=== PATIENT | female | born 1945 | race Caucasian/White ===

== ENCOUNTER 2017-03-19 01:54 | Emergency (ER) | payer MEDICARE ==
[2017-03-19] MEDS ORDERED: MORPHINE SULFATE 10 MG/ML INJ ONE (02:19)
[2017-03-19] MEDS ORDERED: HEPARIN SOD (PORCINE) 1,000 UNIT/ML 10 ML VIAL ONE (02:19)
[2017-03-19] MEDS: NITROGLYCERIN 0.4 MG/TAB 25 TAB/BOTTLE SL PRN ×2 (02:21→02:26)
[2017-03-19] MEDS ORDERED: ONDANSETRON HCL INJ/PF 4 MG/2 ML SDV ONE (02:25)
--- NOTE | 2017-03-19 02:27 | RADIOLOGY REPORT (SQ) ---
EXAM DESCRIPTION: CHEST SINGLE VIEW CLINICAL HISTORY: 72 years, Female, CHEST PAIN COMPARISON: 01/30/2015. LIMITATIONS: None. FINDINGS: Small opacity-effusion of the left costophrenic angle. Normal lung volume. Prominent cardiac silhouette. Chronic calcification at the medial left lower hemithorax. Atherosclerosis. Cervicothoracic hardware fusion. Stable. IMPRESSION: No acute cardiopulmonary findings. 2010 [employer] [facility] [email or web address]- All Rights Reserved
--- NOTE | 2017-03-19 02:30 | ER Document Report ---
ED Cardiac - General Stated Complaint: CHEST PAIN Time Seen by Provider: 03/19/17 02:00 Mode of Arrival: Medic Information source: Emergency Med Personnel TRAVEL OUTSIDE OF THE [place] IN LAST 30 DAYS: No - HPI Patient complains to provider of: Chest pain Notes: 72-year-old lady with prior medical history of atrial fibrillation as well as coronary artery disease who has a previous stent in her right coronary artery by [facility] presented today with acute episode of chest pain. According to EMS patient has been having chest pain since yesterday. Her pain has gotten worse today not associated with shortness of breath. Patient was seen immediately upon arrival. Prehospital EKG concerning for posterior LA with elevations in aVR as well as significant depressions in her septal leads. Patient is an active pain, diaphoretic, severity of her pain is 10 out of 10. Code STEMI was activated. - Related Data Allergies/Adverse Reactions: atorvastatin calcium [From Lipitor] Allergy (Verified 08/20/14 06:40) codeine [Codeine] Allergy (Verified 08/20/14 06:40) Iodinated Contrast- Oral and IV Dye [IV Dye, Iodine Containing] Allergy ( Verified 08/20/14 06:40) lisinopril [Lisinopril] Allergy (Verified 08/20/14 06:40) meperidine HCl [From Demerol] Allergy (Verified 08/20/14 06:40) Penicillins Allergy (Verified 08/20/14 06:40) pravastatin sodium [From Pravachol] Allergy (Verified 08/20/14 06:40) ramipril [From Altace] Allergy (Verified 08/20/14 06:40) simvastatin [From Zocor] Allergy (Verified 08/20/14 06:40) tramadol [Tramadol] Allergy (Verified 08/20/14 06:40) "all pain meds" Adverse Reaction (Uncoded 08/20/14 06:40) Past Medical History - Social History Smoking Status: Current Every Day Smoker Family History: Reviewed & Not Pertinent - Past Medical History Cardiac Medical History: Reports: Hx Atrial Fibrillation, Hx Congestive Heart Failure, Hx Coronary Artery Disease, Hx Hypercholesterolemia, Hx Hypertension Endocrine Medical History: Reports: Hx Diabetes Mellitus Type 2, Hx Hypothyroidism GI Medical History: Reports: Hx Gastroesophageal Reflux Disease Psychiatric Medical History: Denies: Hx Depression Past Surgical History: Reports: Hx Appendectomy, Hx Cardiac Catheterization, Hx Cardiac Surgery - Ablation for A. fib in 2011, Hx Cholecystectomy, Hx Coronary Stent - Left circumflex stent on 12/01/2013, there was some RCA disease at 60%, Hx Orthopedic Surgery - Bilateral knee replacements - Immunizations Hx Diphtheria, Pertussis, Tetanus Vaccination: Yes Hx Pneumococcal Vaccination: 03/03/11 Review of Systems - Review of Systems Notes: REVIEW OF SYSTEMS: CONSTITUTIONAL: -fevers, -chills EENT: -eye pain, -difficulty swallowing, -nasal congestion CARDIOVASCULAR: +chest pain, -syncope. RESPIRATORY: -cough, +SOB GASTROINTESTINAL: -abdominal pain, -nausea, -vomiting, -diarrhea GENITOURINARY: -dysuria, -hematuria MUSCULOSKELETAL: -back pain, -neck pain SKIN: -rash or skin lesions. HEMATOLOGIC: -easy bruising or bleeding. LYMPHATIC: -swollen, enlarged glands. NEUROLOGICAL: -altered mental status or loss of consciousness, -headache, - neurologic symptoms PSYCHIATRIC: -anxiety, -depression. ALL OTHER SYSTEMS REVIEWED AND NEGATIVE. Physical Exam - Vital signs Vitals: Resp Pulse Ox 21 H 81 L 03/19/17 02:02 03/19/17 02:02 - Notes Notes: Reviewed vital signs and nursing note as charted by RN. CONSTITUTIONAL: Alert, diaphoretic, and distress HEAD: Normocephalic; atraumatic EYES: PERRL; Conjunctivae clear, sclerae non-icteric ENT: normal nose NECK: Supple without meningismus; non-tender; no cervical lymphadenopathy, no masses CARD: Tachycardia; no murmurss RESP: Tachypnea and splinting, mild respiratory distress ABD/GI: Normal bowel sounds; non-distended; soft, nontender BACK: The back appears normal and is non-tender to palpation EXT: Normal ROM in all joints; non-tender to palpation; no cyanosis, no effusions, no edema SKIN: Normal color for age and race; warm; dry; good turgor; capillary refill < 2 seconds; no acute lesions noted NEURO: .Cranial nerves 3-12 intact. Motor strength 5/5 bilaterally PSYCH: Anxious, appears to be in distress Course - Re-evaluation Re-evalutation: 03/19/17 02:28 72-year-old with active chest pain Prehospital EKG is concerning for acute STEMI, STEMI protocol activated Discussed the case with [facility] cardiology, Dr. Jael Lipscomb Given the patient is on Coumadin, will not give patient streptokinase given the risk of bleeding We will give patient Lovenox as well as aspirin and heparin bolus per cardiology recommendations Pain control with morphine, IV fluids, Zofran for nausea Plan to transfer to [facility] Car Supervisor - Vital Signs Vital signs: Temp Pulse Resp BP Pulse Ox 19 186/104 H 94 03/19/17 02:11 03/19/17 02:11 03/19/17 02:11 - EKG Interpretation by Me EKG shows normal: Sinus rhythm Rate: Tachycardia Additional EKG results interpreted by me: 03/19/17 02:[address] elevation in lead aVR with reciprocal ST depressions in septal leads on prehospital EKG Repeat EKG upon arrival also reveals the same changes No prior EKG available Acute STEMI Critical Care Note - Critical Care Note Total time excluding time spent on procedures (mins): 35 Comments: Critical Care Time: 35 minutes Critical care provider statement: Critical care time was exclusive of: Separately billable procedures and treating other patients and teaching time Critical care was time spent personally by me on the following activities: Blood draw for specimens, development of treatment plan with patient or surrogate, evaluation of patient's response to treatment, examination of patient , obtaining history from patient or surrogate, ordering and performing treatments and interventions, ordering and review of laboratory studies, pulse oximetry, re-evaluation of patient's condition and review of old charts, discussion with consultants I assumed direction of critical care for this patient from another provider in my specialty: no Discharge - Discharge Clinical Impression: STEMI (ST elevation myocardial infarction) Condition: Stable Disposition: [facility]
[2017-03-19 02:44] LABS: INTERNATIONAL RATION (INR) 1.41; PROTHROMBIN TIME 18.1 SEC (11.4-15.4)
[2017-03-19] MEDS ORDERED: CLOPIDOGREL BISULFATE 300 MG TABLET PO ONE (02:46)
[2017-03-19] MEDS ORDERED: ASPIRIN 81 MG TABLET, CHEWABLE PO ONE (02:46)
[2017-03-19] MEDS ORDERED: MORPHINE SULFATE 10 MG/ML INJ IV ONE (02:46)
[2017-03-19] MEDS ORDERED: HEPARIN SOD (PORCINE) 1,000 UNIT/ML 10 ML VIAL IV ONE (02:48)
[2017-03-19 02:49] VITALS: BP 160/82
[2017-03-19] MEDS ORDERED: ENOXAPARIN SODIUM INJ 30 MG/0.3 ML DISP.SYRIN IV ONE (02:49)
[2017-03-19] MEDS ORDERED: ENOXAPARIN SODIUM INJ 80 MG/0.8 ML DISP.SYRIN SUBCUT ONE (02:50)
[2017-03-19 02:51] LABS: ALANINE AMINOTRANSFERASE 34 U/L (9-52); ALKALINE PHOSPHATASE 71 U/L (38-126); ANION GAP 12 (5-19); ASPARTATE AMINO TRANSFERASE 25 U/L (14-36); BILIRUBIN,DIRECT 0.4 mg/dL (0.0-0.4); BILIRUBIN,TOTAL 0.7 mg/dL (0.2-1.3); BLOOD UREA NITROGEN 15 mg/dL (7-20); CALCIUM 10.2 mg/dL (8.4-10.2); CARBON DIOXIDE 25 mmol/L (22-30); CHLORIDE 103 mmol/L (98-107); CREATINE KINASE 47 U/L (30-135); GLUCOSE 147 mg/dL (75-110); POTASSIUM 3.8 mmol/L (3.6-5.0); SODIUM 139.5 mmol/L (137-145); TOTAL PROTEIN 6.5 g/dL (6.3-8.2)
[2017-03-19 02:54] LABS: ABSOLUTE BASOPHILS # (AUTO) 0.1 10^3/uL (0.0-0.2); ABSOLUTE EOSINOPHILS # (AUTO) 0.2 10^3/uL (0.0-0.6); ABSOLUTE LYMPHOCYTES (AUTO) 2.3 10^3/uL (0.5-4.7); ABSOLUTE MONOCYTES (AUTO) 0.7 10^3/uL (0.1-1.4); ABSOLUTE NEUT (AUTO) 7.2 10^3/uL (1.7-8.2); BASOPHILS % (AUTO) 1.2 % (0-2); EOSINOPHILS % (AUTO) 1.9 % (0-6); HEMATOCRIT 38.3 % (36.0-47.0); HEMOGLOBIN 12.5 g/dL (12.0-15.5); LYMPHOCYTES % (AUTO) 21.6 % (13-45); MEAN CORPUSCULAR HEMOGLOBIN 26.7 pg (27.0-33.4); MEAN CORPUSCULAR HGB CONC 32.6 g/dL (32.0-36.0); MEAN CORPUSCULAR VOLUME 82 fl (80-97); MONOCYTES % (AUTO) 6.9 % (3-13); PLATELET COUNT 336 10^3/uL (150-450); RED BLOOD COUNT 4.67 10^6/uL (3.72-5.28); RED CELL DISTRIBUTION WIDTH 15.2 % (11.5-14.0); SEGMENTED NEUTROPHILS % (AUTO) 68.4 % (42-78); TOTAL CELLS COUNTED % (AUTO) 100 %; WHITE BLOOD COUNT 10.5 10^3/uL (4.0-10.5)
[2017-03-19 03:03] LABS: CREATINE KINASE MB 1.43 ng/mL (<4.55); TROPONIN I 0.024 ng/mL
[2017-03-19] MEDS ORDERED: ENOXAPARIN SODIUM INJ 30 MG/0.3 ML DISP.SYRIN ONE (10:51)
[2017-03-19] MEDS ORDERED: CLOPIDOGREL BISULFATE 75 MG TABLET ONE (10:51)
[2017-03-19] MEDS ORDERED: NITROGLYCERIN 0.4 MG/TAB 25 TAB/BOTTLE ONE (10:51)
[2017-03-19] MEDS ORDERED: TENECTEPLASE INJ 50 MG KIT IV ONE (10:51)
[2017-03-19] MEDS ORDERED: ASPIRIN 81 MG TABLET, CHEWABLE ONE (10:51)
--- NOTE | 2017-03-19 23:12 | EKG REPORT ---
SEVERITY:- ABNORMAL ECG - SINUS TACHYCARDIA INCOMPLETE RIGHT BUNDLE BRANCH BLOCK ANTERIOR INFARCT, AGE INDETERMINATE ST DEPRESSION, CONSIDER ISCHEMIA, INF LEADS : Confirmed by: Masha Matamoros 19-Mar-2017 23:12:12
--- NOTE | 2017-03-19 23:14 | EKG REPORT ---
SEVERITY:- ABNORMAL ECG - JUNCTIONAL TACHYCARDIA REPOL ABNRM SUGGESTS ISCHEMIA, DIFFUSE LEADS BORDERLINE PROLONGED QT INTERVAL : Confirmed by: Masha Matamoros 19-Mar-2017 23:13:06
== END 2017-03-19 02:40 | disposition short-term general hospital (02) ==
LOC: ER 01:54
DX: I21.3 ST elevation (STEMI) myocardial infarction of unspecified site (principal); R07.9 Chest pain, unspecified; R61 Generalized hyperhidrosis; R06.82 Tachypnea, not elsewhere classified; R00.0 Tachycardia, unspecified; I25.10 Atherosclerotic heart disease of native coronary artery without angina pectoris; I10 Essential (primary) hypertension; I48.91 Unspecified atrial fibrillation; F17.200 Nicotine dependence, unspecified, uncomplicated; Z95.5 Presence of coronary angioplasty implant and graft; Z88.8 Allergy status to other drugs, medicaments and biological substances; Z88.5 Allergy status to narcotic agent; Z91.041 Radiographic dye allergy status; Z88.0 Allergy status to penicillin; Z79.01 Long term (current) use of anticoagulants
CPT/HCPCS: 93005; 99291; 96372; 96374; 96375; 36415; 82553; 82550; 85025; 85610; 80053; 84484; 71045; 93010; J3101; A9270 ×3; J2270; J2405; J1650 ×2; J3490